=== PATIENT | female | born 1975 | race African-American/Black ===

== ENCOUNTER 2021-04-14 13:59 | Outpatient (CLI) | payer OTHER ==
[2021-04-14 15:36] LABS: Hemoglobin 10.5 g/dL (12.0-15.5); Mean Corpuscular HGB CONC 34.5 g/dL (32.0-36.0); Mean Corpuscular Hemoglobin 36.1 pg (27.0-33.0); Mean Corpuscular Volume 104.5 fl (81.6-98.3); Mean Platelet Volume 8.9 fl (7.4-10.4); Platelet Count 258 10x3/uL (150-450); RBC Distribution Width 15.1 % (11.5-14.5); Red Blood Cell (RBC) Count 2.91 10x6/uL (3.90-5.03); White Blood Cell (WBC) Count 5.5 10x3/uL (3.5-10.5)
[2021-04-14 16:00] LABS: Anion Gap 14 mmol/L (10-20); BUN (Urea Nitrogen) 4 mg/dL (7.0-18.7); Calc. Creatinine Clearance 0 mL/min (70-130); Calcium 9.2 mg/dL (7.8-10.44); Carbon Dioxide 24 mmol/L (22-29); Chloride 106 mmol/L (98-107); Glucose 80 mg/dL (70-105); Potassium 4.5 mmol/L (3.5-5.1); Sodium 139 mmol/L (136-145)
[2021-04-15 00:40] LABS: SARS-CoV-2 PCR by NAA Not Detected (NotDetected)
== END 2021-04-14 14:00 | disposition home or self-care (01) ==
LOC: LABBT 13:59
PROVIDERS: ATTEND Neurological Surgery
DX: Z01.818 Encounter for other preprocedural examination (principal); M54.16 Radiculopathy, lumbar region; Z20.822 Contact with and (suspected) exposure to COVID-19
CPT/HCPCS: 80048; 85027; 93005; 93010; U0003; U0005

== ENCOUNTER 2021-04-19 05:55 | Inpatient (IN) | payer OTHER ==
[2021-04-15 08:36] VITALS: BMI 28.8
[2021-04-19] MEDS ORDERED: Fentanyl 100 MCG/2 ML VIAL ONE ×3 (06:06→11:04)
[2021-04-19] MEDS ORDERED: ceFAZolin 2 GM/DEX 5% 100 ML BAG ONE (06:07)
[2021-04-19] MEDS ORDERED: Midazolam HCl 2 mg/2 ml Vial ONE (07:01)
[2021-04-19] MEDS ORDERED: Glycopyrrolate 0.2 MG/ML 5 ML SYRINGE ONE (07:37)
[2021-04-19] MEDS ORDERED: Lidocaine 1% PF 5 ML VIAL ONE (07:37)
[2021-04-19] MEDS ORDERED: Ondansetron PF 4 MG/2 ML Vial ONE (07:37)
[2021-04-19] MEDS ORDERED: Rocuronium Bromide 10 MG/ML (10ML VIAL) ONE (07:37)
[2021-04-19] MEDS ORDERED: PROPOFOL 200 MG/20 ML VIAL ONE (07:37)
[2021-04-19] MEDS ORDERED: Promethazine HCl 25 MG/ML VIAL IVPB PRN (08:17)
[2021-04-19] MEDS ORDERED: Meperidine HCl/PF 25 MG/ML VIAL SLOW IVP PRN (08:17)
[2021-04-19] MEDS ORDERED: Ondansetron HCl/PF 4 MG/2 ML Vial IVP PRN (08:17)
[2021-04-19] MEDS ORDERED: Promethazine HCl 25 MG/ML VIAL IM PRN ×3 (08:17→11:30)
[2021-04-19] MEDS ORDERED: SUGAMMADEX SODIUM 200 MG/2 ML VIAL ONE (09:03)
[2021-04-19] MEDS ORDERED: HYDROmorphone 2 MG/ML VIAL ONE (09:50)
[2021-04-19] MEDS ORDERED: Ondansetron PF 4 MG/2 ML Vial IVP PRN (11:23)
[2021-04-19] MEDS ORDERED: diphenhydrAMINE 50 MG/ML VIAL IM PRN (11:23)
[2021-04-19] MEDS ORDERED: Zolpidem Tartrate 5 MG TAB PO PRN (11:23)
[2021-04-19] MEDS ORDERED: Naloxone HCl 0.4 mg/ml Vial IV PRN (11:23)
[2021-04-19] MEDS ORDERED: fentaNYL Citrate/PF 2,000 MCG in Sodium Chloride 0.9% 60 ML IV PRN (11:23)
[2021-04-19] MEDS ORDERED: Ondansetron PF 4 MG/2 ML Vial IM PRN (11:29)
[2021-04-19] MEDS ORDERED: diphenhydrAMINE 25 MG CAP PO PRN (11:30)
[2021-04-19] MEDS ORDERED: Morphine 4 MG/ML VIAL SLOW IVP PRN ×2 (11:30→11:31)
[2021-04-19] MEDS ORDERED: HYDROmorphone 2 MG/ML VIAL SLOW IVP PRN (11:30)
[2021-04-19] MEDS ORDERED: Mag-Al 1200 mg/1200 mg/30 ML UDCUP PO PRN ×2 (11:30→11:44)
[2021-04-19] MEDS ORDERED: Milk Of Magnesia 30 ML UDCUP PO PRN (11:30)
[2021-04-19] MEDS ORDERED: Acetaminophen/Codeine 30-300mg Tablet PO PRN ×2 (11:30)
[2021-04-19] MEDS ORDERED: diphenhydrAMINE 50 MG/ML VIAL IVP PRN (11:30)
[2021-04-19] MEDS ORDERED: Promethazine 25 MG TAB PO PRN (11:30)
[2021-04-19] MEDS ORDERED: Promethazine HCl 12.5 MG SUPP PR PRN (11:30)
[2021-04-19] MEDS ORDERED: PCA Communication Order-Pharmacy FS SCH (11:30)
[2021-04-19] MEDS ORDERED: traMADol HCl 50 MG TAB PO PRN ×2 (11:30)
[2021-04-19] MEDS ORDERED: Ondansetron PF 4 MG/2 ML Vial SLOW IVP PRN (11:45)
[2021-04-19] MEDS: ceFAZolin Sodium/D5W 2 GM in Premix Bag 1 BAG IVPB SCH (14:27)
[2021-04-19] MEDS: tiZANidine HCl 4 MG TAB PO PRN ×2 (14:27→19:59)
[2021-04-19] MEDS: diphenhydrAMINE 50 MG/ML VIAL IVP PRN (18:56)
[2021-04-19] MEDS: Amitriptyline HCl 10 MG TAB PO SCH (19:59)
[2021-04-20] MEDS: ceFAZolin Sodium/D5W 2 GM in Premix Bag 1 BAG IVPB SCH (01:48)
[2021-04-20] MEDS: tiZANidine HCl 4 MG TAB PO PRN ×2 (01:52→18:32)
[2021-04-20] MEDS: diphenhydrAMINE 25 MG CAP PO PRN (01:53)
[2021-04-20] MEDS ORDERED: Dexamethasone 10 MG/ML VIAL SLOW IVP SCH (02:45)
[2021-04-20] MEDS: Amitriptyline HCl 10 MG TAB PO SCH ×2 (07:50→23:30)
[2021-04-20] MEDS ORDERED: FLU VACC QS2021-22(6MOS UP)/PF 60 MCG/0.5 ML SYRINGE IM ONE (09:00)
[2021-04-20] MEDS: Acetaminophen 500 MG TAB PO PRN ×2 (12:24→22:49)
[2021-04-20] MEDS: diphenhydrAMINE 50 MG/ML VIAL IVP PRN ×2 (14:33→18:45)
[2021-04-21] MEDS ORDERED: Morphine 2 MG/ML VIAL SLOW IVP PRN (07:15)
[2021-04-21] MEDS ORDERED: Morphine 4 MG/ML VIAL SLOW IVP PRN (07:27)
[2021-04-21 07:56] LABS: Hemoglobin 8.7 g/dL (12.0-16.0)
[2021-04-21] MEDS: Amitriptyline HCl 10 MG TAB PO SCH (09:37)
[2021-04-21] MEDS: diphenhydrAMINE 25 MG CAP PO PRN ×2 (09:46→21:44)
[2021-04-21] MEDS: Acetaminophen/Codeine 30-300mg Tablet PO PRN ×3 (12:23→22:51)
[2021-04-22] MEDS: Amitriptyline HCl 10 MG TAB PO SCH ×2 (00:42→08:51)
[2021-04-22 05:26] LABS: Hemoglobin 8.2 g/dL (12.0-16.0)
[2021-04-22] MEDS: Acetaminophen/Codeine 30-300mg Tablet PO PRN ×2 (06:17→11:59)
[2021-04-22 12:19] VITALS: BP 102/67; TEMP 98.7
== END 2021-04-22 13:32 | disposition home or self-care (01) | DRG 455 ==
LOC: SDC 05:55 → T4-A 09:18 → OBSVTOIN 04-20 16:09
PROVIDERS: ADMIT Neurological Surgery; ATTEND Neurological Surgery
PROC: 0SG00A0 Fusion of Lumbar Vertebral Joint with Interbody Fusion Device, Anterior Approach, Anterior Column, Open Approach (ICD-10-PCS; principal; 2021-04-19)
PROC: 0SG0071 Fusion of Lumbar Vertebral Joint with Autologous Tissue Substitute, Posterior Approach, Posterior Column, Open Approach (ICD-10-PCS; 2021-04-19)
PROC: 0SG30A0 Fusion of Lumbosacral Joint with Interbody Fusion Device, Anterior Approach, Anterior Column, Open Approach (ICD-10-PCS; 2021-04-19)
PROC: 0SG3071 Fusion of Lumbosacral Joint with Autologous Tissue Substitute, Posterior Approach, Posterior Column, Open Approach (ICD-10-PCS; 2021-04-19)
PROC: 01NB0ZZ Release Lumbar Nerve, Open Approach (ICD-10-PCS; 2021-04-19)
PROC: 01NR0ZZ Release Sacral Nerve, Open Approach (ICD-10-PCS; 2021-04-19)
PROC: 0SB20ZZ Excision of Lumbar Vertebral Disc, Open Approach (ICD-10-PCS; 2021-04-19)
PROC: 0SB40ZZ Excision of Lumbosacral Disc, Open Approach (ICD-10-PCS; 2021-04-19)
DX: M51.16 Intervertebral disc disorders with radiculopathy, lumbar region (principal); M48.061 Spinal stenosis, lumbar region without neurogenic claudication; M51.17 Intervertebral disc disorders with radiculopathy, lumbosacral region; M48.07 Spinal stenosis, lumbosacral region; D64.9 Anemia, unspecified; R20.8 Other disturbances of skin sensation; I95.9 Hypotension, unspecified; Z91.040 Latex allergy status; Z98.51 Tubal ligation status; Z90.710 Acquired absence of both cervix and uterus
CPT/HCPCS: 36415; 36416; 76000; 85014; 85018; 86850; 86900; 86901; 90471; 90686; 96374; 96375; 96376; C1713; C1768; C1776; G0008; G0378; J1100; J1170; J1200; J2250; J2270; J2405; J2704; J3010; J3370; J3490

== ENCOUNTER 2021-05-04 12:30 | Outpatient (CLI) | payer OTHER | END 2021-05-04 12:31 | disposition home or self-care (01) | LOC: TBSIIMAG 12:30 | PROVIDERS: ATTEND Neurological Surgery | DX: M54.16 Radiculopathy, lumbar region (principal); Z98.890 Other specified postprocedural states | CPT/HCPCS: 72100 ==